=== PATIENT | male | born 1990 | race Hispanic/Latino ===

== ENCOUNTER 2022-10-17 11:00 | Emergency (ER) | payer OTHER ==
[2022-10-17] MEDS ORDERED: KETOROLAC 60 MG VIAL (30MG/ML) IM ONE (13:58)
== END 2022-10-17 15:58 | disposition home or self-care (01) ==
LOC: EDH 11:00
DX: R51.9 Headache, unspecified (principal); Z53.21 Procedure and treatment not carried out due to patient leaving prior to being seen by health care provider
CPT/HCPCS: 70450; 72125; J1885